=== PATIENT | female | born 1965 | race Caucasian/White ===

== ENCOUNTER 2018-01-25 06:19 | Emergency (ER) | payer SELFPAY ==
[2018-01-25 06:25] VITALS: BP 134/77
[2018-01-25] MEDS ORDERED: CIPROFLOXACIN HCL/DEXAMETH OTIC DROP 7.5 ML AS ONE (07:01)
[2018-01-25] MEDS ORDERED: IPRATROPIUM/ALBUTEROL 0.5-2.5 MG/3 ML AMPUL NEB ONE (07:02)
--- NOTE | 2018-01-25 07:06 | ER Document Report ---
ED General - General Chief Complaint: Ear Pain Stated Complaint: EAR PAIN Time Seen by Provider: 01/25/18 07:01 TRAVEL OUTSIDE OF THE [place] IN LAST 30 DAYS: No - HPI Patient complains to provider of: Ear pain, cough Notes: 52-year-old female presents with 1 day history of increasing pain in her left ear pain is 8/10 burning in nature without radiation denies fever or nasal congestion. Pain is exacerbated with pressure on her tragus or elevation left ear helix. Patient is also a pack-a-day smoker and has a cough requesting chest x-ray and breathing treatment. - Related Data Allergies/Adverse Reactions: No Known Allergies Allergy (Unverified 01/25/18 06:25) Past Medical History - Social History Smoking Status: Current Every Day Smoker Chew tobacco use (# tins/day): No Frequency of alcohol use: None Drug Abuse: None Family History: None Patient has suicidal ideation: No Patient has homicidal ideation: No Renal/ Medical History: Denies: Hx Peritoneal Dialysis Psychiatric Medical History: Reports: Hx Bipolar Disorder Past Surgical History: Reports: Hx Tubal Ligation Review of Systems - Review of Systems Notes: REVIEW OF SYSTEMS: CONSTITUTIONAL: -fevers, -chills EENT: -eye pain, -difficulty swallowing, -nasal congestion CARDIOVASCULAR: -chest pain, -syncope. RESPIRATORY: +cough, -SOB GASTROINTESTINAL: -abdominal pain, -nausea, -vomiting, -diarrhea GENITOURINARY: -dysuria, -hematuria MUSCULOSKELETAL: -back pain, -neck pain SKIN: -rash or skin lesions. HEMATOLOGIC: -easy bruising or bleeding. LYMPHATIC: -swollen, enlarged glands. NEUROLOGICAL: -altered mental status or loss of consciousness, -headache, - neurologic symptoms PSYCHIATRIC: -anxiety, -depression. ALL OTHER SYSTEMS REVIEWED AND NEGATIVE. Physical Exam - Vital signs Vitals: Temp Pulse Resp BP Pulse Ox 98.6 F 80 20 134/77 H 95 01/25/18 06:20 01/25/18 06:20 01/25/18 06:20 01/25/18 06:20 01/25/18 06:20 - Notes Notes: PHYSICAL EXAMINATION: GENERAL: Well-appearing, well-nourished and in no acute distress. HEAD: Atraumatic, normocephalic. EYES: Pupils equal round and reactive to light, extraocular movements intact, sclera anicteric, conjunctiva are normal. ENT: nares patent, oropharynx clear without exudates. Moist mucous membranes. EXTERNAL EAR CANCAL INFLAMMED NECK: Normal range of motion, supple without lymphadenopathy LUNGS: Breath sounds clear to auscultation bilaterally and equal. No wheezes rales or rhonchi. HEART: Regular rate and rhythm without murmurs ABDOMEN: Soft, nontender, normoactive bowel sounds. No guarding, no rebound. No masses appreciated. EXTREMITIES: Normal range of motion, no pitting or edema. No cyanosis. NEUROLOGICAL: Cranial nerves grossly intact. Normal speech, normal gait. Normal sensory and motor exams. PSYCH: Normal mood, normal affect. SKIN: Warm, Dry, normal turgor, no rashes or lesions noted. Course - Re-evaluation Re-evalutation: 01/25/18 07:27 Well-appearing female presents with otitis externa. Ciprodex drops instilled in the department prescription for more the same given. Patient also given a breathing treatment feeling much improved. Patient's chest x-ray is no acute process. Discharged home strict follow-up precautions given - Vital Signs Vital signs: Temp Pulse Resp BP Pulse Ox 98.6 F 80 20 134/77 H 95 01/25/18 06:20 01/25/18 06:20 01/25/18 06:20 01/25/18 06:20 01/25/18 06:20 Discharge - Discharge Clinical Impression: Cough Otitis externa Qualifiers: Otitis externa type: unspecified type Chronicity: acute Laterality: left Qualified Code(s): H60.502 - Unspecified acute noninfective otitis externa, left ear Condition: Stable Instructions: Use of Ear Drops ([facility]) Additional Instructions: See your PCP Prescriptions: Ciprofloxacin HCl/Dexameth [Ciprodex Otic Suspension 7.5 ml Bottle] 4 drop OT BID #1 bottle
--- NOTE | 2018-01-25 07:28 | RADIOLOGY REPORT (SQ) ---
EXAM DESCRIPTION: XR CHEST 1 VIEW COMPLETED DATE/TME: 01/25/2018 07:02 CLINICAL HISTORY: 52 years Female, cough COMPARISON: None. NUMBER OF VIEWS/TECHNIQUE: 1/AP FINDINGS: Adequate lung volume, clear parenchyma, normal cardiac silhouette, and intact bony thorax. IMPRESSION: No acute cardiopulmonary findings.
== END 2018-01-25 07:57 | disposition home or self-care (01) ==
LOC: ER 06:19
DX: H60.502 Unspecified acute noninfective otitis externa, left ear (principal); R05 Cough; H92.02 Otalgia, left ear; F17.210 Nicotine dependence, cigarettes, uncomplicated
CPT/HCPCS: 94640; 99283; 71045; J3490; J7620

== ENCOUNTER 2018-06-03 05:00 | Emergency (ER) | payer SELFPAY ==
--- NOTE | 2018-06-03 05:30 | ER Document Report ---
ED Medical Screen (RME) - General Chief Complaint: Shortness Of Breath Stated Complaint: DIFFFICULTY BREATHING Time Seen by Provider: 06/03/18 05:19 Notes: 53-year-old female with chief complaint of difficulty breathing. She states for the past 3 days she is having intermittent symptoms where she feels like she cannot take a full breath. She also states that she has frequent belching but states this is not new for her. She denies any particular pain. She denies nausea or vomiting except for 1 episode where she feels like she is vomiting mucus. She denies cough or congestion. Past medical history of bipolar/anxiety, states she is off medications. Current smoker. TRAVEL OUTSIDE OF THE [place] IN LAST 30 DAYS: No - Related Data Allergies/Adverse Reactions: No Known Allergies Allergy (Verified 06/03/18 05:05) Past Medical History Renal/ Medical History: Denies: Hx Peritoneal Dialysis Psychiatric Medical History: Reports: Hx Bipolar Disorder Past Surgical History: Reports: Hx Tubal Ligation Physical Exam - Vital signs Vitals: Temp Pulse Resp BP Pulse Ox 97.7 F 71 20 132/97 H 99 06/03/18 05:07 06/03/18 05:07 06/03/18 05:07 06/03/18 05:07 06/03/18 05:07 - General General appearance: Other - Patient blinking rapidly, occasionally hyperventilating, shifting in the bed. However she does not appear to be in distress. - Respiratory Respiratory status: No respiratory distress Breath sounds: Normal. No: Decreased air movement, Wheezing Course - Vital Signs Vital signs: Temp Pulse Resp BP Pulse Ox 97.7 F 71 20 132/97 H 99 06/03/18 05:07 06/03/18 05:07 06/03/18 05:07 06/03/18 05:07 06/03/18 05:07
[2018-06-03 05:38] LABS: ABSOLUTE BASOPHILS # (AUTO) 0.1 10^3/uL (0.0-0.2); ABSOLUTE EOSINOPHILS # (AUTO) 0.3 10^3/uL (0.0-0.6); ABSOLUTE LYMPHOCYTES (AUTO) 2.6 10^3/uL (0.5-4.7); ABSOLUTE MONOCYTES (AUTO) 0.5 10^3/uL (0.1-1.4); EOSINOPHILS % (AUTO) 3.5 % (0-6); HEMATOCRIT 41.2 % (36.0-47.0); HEMOGLOBIN 14.1 g/dL (12.0-15.5); LYMPHOCYTES % (AUTO) 31.2 % (13-45); MEAN CORPUSCULAR HGB CONC 34.2 g/dL (32.0-36.0); MEAN CORPUSCULAR VOLUME 85 fl (80-97); PLATELET COUNT 203 10^3/uL (150-450); RED BLOOD COUNT 4.87 10^6/uL (3.72-5.28); RED CELL DISTRIBUTION WIDTH 14.5 % (11.5-14.0); SEGMENTED NEUTROPHILS % (AUTO) 58.3 % (42-78); TOTAL CELLS COUNTED % (AUTO) 100 %; WHITE BLOOD COUNT 8.5 10^3/uL (4.0-10.5)
[2018-06-03 05:55] LABS: ALANINE AMINOTRANSFERASE 14 U/L (9-52); ALBUMIN 4.2 g/dL (3.5-5.0); ALKALINE PHOSPHATASE 96 U/L (38-126); ANION GAP 10 (5-19); ASPARTATE AMINO TRANSFERASE 15 U/L (14-36); BILIRUBIN,DIRECT 0.2 mg/dL (0.0-0.4); BILIRUBIN,TOTAL 0.3 mg/dL (0.2-1.3); BLOOD UREA NITROGEN 11 mg/dL (7-20); CARBON DIOXIDE 23 mmol/L (22-30); CHLORIDE 106 mmol/L (98-107); GLUCOSE 130 mg/dL (75-110); POTASSIUM 4.7 mmol/L (3.6-5.0); SODIUM 139.1 mmol/L (137-145); TOTAL PROTEIN 7.1 g/dL (6.3-8.2)
--- NOTE | 2018-06-03 06:35 | RADIOLOGY REPORT (SQ) ---
EXAM DESCRIPTION: XR CHEST 1 VIEW COMPLETED DATE/TME: 06/03/2018 05:24 CLINICAL HISTORY: 53 years Female, shortness of breath COMPARISON: None. NUMBER OF VIEWS/TECHNIQUE: 1/AP FINDINGS: Adequate lung volume, clear parenchyma, normal cardiac silhouette, and intact bony thorax. IMPRESSION: No acute cardiopulmonary findings.
[2018-06-03] MEDS ORDERED: DIPHENHYDRAMINE HCL 50 MG CAPSULE PO ONE (06:44)
[2018-06-03] MEDS ORDERED: LORAZEPAM 1 MG TABLET PO ONE (06:44)
--- NOTE | 2018-06-03 06:49 | ER Document Report ---
ED Respiratory Problem - General Chief Complaint: Shortness Of Breath Stated Complaint: DIFFFICULTY BREATHING Time Seen by Provider: 06/03/18 05:19 Mode of Arrival: Ambulatory Information source: Patient, [facility] Records Notes: This 53-year-old female patient comes emergency room complaining of belching for the past 6 months, for the past 3 days feels unable to breathe feels like there is something stuck in her throat. She does have anxiety, frequent cough, complains of the difficulty breathing, belching, and nonproductive cough. She reports she has been off her bipolar medications which include Prozac, Abilify, and one other she cannot recall since sometime in July 2017. That is about the same time that her symptoms began. She reports the belching occurs even in her sleep and makes it difficult to stay asleep. She did not seem to understand that she is swallowing the air that she is belching, I watched her do this repeatedly. TRAVEL OUTSIDE OF THE [place] IN LAST 30 DAYS: No - Related Data Allergies/Adverse Reactions: No Known Allergies Allergy (Verified 06/03/18 05:05) Past Medical History - General Information source: Patient, [facility] Records - Social History Smoking Status: Current Every Day Smoker Cigarette use (# per day): Yes - 20+ Chew tobacco use (# tins/day): No Smoking Education Provided: Yes - 3 minutes of discussions about how the smoking contributes to her health pr Frequency of alcohol use: Rare Drug Abuse: None Occupation: Unemployed Lives with: Friend Family History: None Patient has suicidal ideation: No Patient has homicidal ideation: No - Medical History Medical History: Negative Psychiatric Medical History: Reports: Hx Anxiety, Hx Bipolar Disorder Past Surgical History: Reports: Hx Tubal Ligation Review of Systems - Review of Systems Constitutional: No symptoms reported. denies: Weight loss EENT: No symptoms reported Cardiovascular: No symptoms reported Respiratory: Short of breath - Subjective shortness of breath caused by her frequent belching Gastrointestinal: See HPI Genitourinary: No symptoms reported Female Genitourinary: Post menopausal Musculoskeletal: Back pain, Joint pain, Other - Patient ambulates somewhat bent over using a cane Skin: No symptoms reported Hematologic/Lymphatic: No symptoms reported Neurological/Psychological: Depression, Anxiety Physical Exam - Vital signs Vitals: Temp Pulse Resp BP Pulse Ox 97.7 F 71 20 132/97 H 99 06/03/18 05:07 06/03/18 05:07 06/03/18 05:07 06/03/18 05:07 06/03/18 05:07 Interpretation: Normal - General General appearance: Alert, Anxious In distress: Mild - Frequent belching - HEENT Head: Normocephalic, Atraumatic Eyes: Normal Pupils: PERRL Nasal: Normal Mouth/Lips: Normal Pharynx: Normal Neck: Normal - Respiratory Respiratory status: No respiratory distress Breath sounds: Normal - Cardiovascular Rhythm: Regular Heart sounds: Normal auscultation Murmur: No - Abdominal Inspection: Morbidly Obese - Back Back: Normal - Extremities General upper extremity: Normal inspection General lower extremity: Normal inspection - Neurological Neuro grossly intact: Yes - Psychological Associated symptoms: Anxious, Depressed - Skin Skin Temperature: Warm Skin Moisture: Dry Skin Color: Normal Course - Re-evaluation Re-evalutation: 06/03/18 06:50 The patient will be given a dose of Benadryl and Ativan to see if that slows the incessant belching she is doing. 06/03/18 07:24 The nurse informed me that the patient stated she drove here so she is not able to take the medications and drive home. She will be given that medication to take home with her and then try to see if that suppresses her belching. She will be encouraged to follow-up with a primary care provider and get back on her bipolar medications as soon as possible. - Vital Signs Vital signs: Temp Pulse Resp BP Pulse Ox 97.7 F 71 19 107/88 H 97 06/03/18 05:07 06/03/18 05:07 06/03/18 07:01 06/03/18 07:01 06/03/18 07:01 - Laboratory Result Diagrams: 06/03/18 05:26 06/03/18 05:26 Laboratory results interpreted by me: 06/03/18 06/03/18 05:26 05:26 RDW 14.5 H Glucose 130 H - Diagnostic Test Radiology reviewed: Image reviewed, Reports reviewed - Chest x-ray is unremarkable - EKG Interpretation by Me EKG shows normal: Sinus rhythm, [place], Intervals, QRS Complexes, ST-T Waves Rate: Normal - 59 Rhythm: NSR Discharge - Discharge Clinical Impression: Functional belching disorder, Noncompliance with medications Bipolar disorder Qualifiers: Active/Remission status: remission status unspecified Qualified Code(s): F31.9 - Bipolar disorder, unspecified Condition: Stable Disposition: HOME, SELF-CARE Additional Instructions: Your repeated belching is a result of you swallowing air and then burping it back up. This is known as a "functional belching disorder". The symptoms seem to have started after you stopped taking your medications for bipolar disorder. You will be sent home with the medications are planned to give you here, since you are driving and should not take the medication until you are at home and do not have to go anywhere for a few hours. The medications will probably help you rest and sleep, and suppress the belching for a while. You will need to follow-up with your mental health providers and get started back on your regular bipolar medications to help stop the air swallowing and belching cycle. RETURN TO THE EMERGENCY ROOM IF ANY NEW OR WORSENING SYMPTOMS.
--- NOTE | 2018-06-03 07:34 | EKG REPORT ---
SEVERITY:- NORMAL ECG - SINUS RHYTHM : Confirmed by: Amaury Mcdonald MD 03-Jun-2018 07:34:01
[2018-06-03 07:51] VITALS: BP 122/81
== END 2018-06-03 07:51 | disposition home or self-care (01) ==
LOC: ER 05:00
DX: R14.2 Eructation (principal); F31.9 Bipolar disorder, unspecified; R06.00 Dyspnea, unspecified; R06.02 Shortness of breath; Z91.14 Patient's other noncompliance with medication regimen; F41.9 Anxiety disorder, unspecified; R05 Cough; F17.210 Nicotine dependence, cigarettes, uncomplicated; Z98.51 Tubal ligation status
CPT/HCPCS: 36415; 71045; 80053; 84484; 85025; 93005; 93010; 99285

== ENCOUNTER → 2018-08-20 | Outpatient (CLI) | payer OTHER ==
[2018-08-20 10:48] LABS: ABSOLUTE EOSINOPHILS # (AUTO) 0.3 10^3/uL (0.0-0.6); ABSOLUTE LYMPHOCYTES (AUTO) 2.2 10^3/uL (0.5-4.7); ABSOLUTE MONOCYTES (AUTO) 0.4 10^3/uL (0.1-1.4); BASOPHILS % (AUTO) 0.4 % (0-2); EOSINOPHILS % (AUTO) 3.3 % (0-6); HEMATOCRIT 40.6 % (36.0-47.0); HEMOGLOBIN 13.6 g/dL (12.0-15.5); LYMPHOCYTES % (AUTO) 24.1 % (13-45); MEAN CORPUSCULAR HEMOGLOBIN 28.7 pg (27.0-33.4); MEAN CORPUSCULAR HGB CONC 33.6 g/dL (32.0-36.0); MEAN CORPUSCULAR VOLUME 86 fl (80-97); MONOCYTES % (AUTO) 4.6 % (3-13); PLATELET COUNT 185 10^3/uL (150-450); RED BLOOD COUNT 4.75 10^6/uL (3.72-5.28); RED CELL DISTRIBUTION WIDTH 14.7 % (11.5-14.0); SEGMENTED NEUTROPHILS % (AUTO) 67.6 % (42-78); TOTAL CELLS COUNTED % (AUTO) 100 %; WHITE BLOOD COUNT 8.9 10^3/uL (4.0-10.5)
--- NOTE | 2018-08-20 10:52 | RADIOLOGY REPORT (SQ) ---
EXAM DESCRIPTION: KNEE BILATERAL 1-2 VIEWS COMPLETED DATE/TIME: 08/20/2018 10:29 am REASON FOR STUDY: MONOARTHRITIS, NOT ELSEWHERE CLASSIFIED, UNSPECIFIED SITE E66.9 OBESITY, UNSPECIF IED M13.10 MONOARTHRITIS, NOT ELSEWHERE CLASSIFIED, UNSPECIFIED J44.9 CHRONIC OBSTRUCTIVE PULMONAR Y DISEASE, UNSPECIFIED COMPARISON: None. NUMBER OF VIEWS: Two views. TECHNIQUE: AP and lateral standing bilateral knees. LIMITATIONS: None. FINDINGS: MINERALIZATION: Normal. RIGHT KNEE BONES: No acute fracture. No worrisome bone lesions. MEDIAL COMPARTMENT: No significant osteophytes. Mild joint space narrowing. No chondrocalcinosis. LATERAL COMPARTMENT: No significant osteophytes. No joint space narrowing. No chondrocalcinosis. PATELLOFEMORAL COMPARTMENT: No significant osteophytes. Significant joint space narrowing. No ch ondrocalcinosis. LEFT KNEE BONES: No acute fracture. No worrisome bone lesions. MEDIAL COMPARTMENT: No significant osteophytes. Near complete loss of the joint space. No chondro calcinosis. LATERAL COMPARTMENT: There are prominent lateral osteophytes. Marked joint space narrowing. No ch ondrocalcinosis. PATELLOFEMORAL COMPARTMENT: Prominent osteophytes at the patellofemoral junction. Marked joint spa ce narrowing. No chondrocalcinosis. IMPRESSION: Advanced osteoarthritic changes in the left knee involving all compartments. Mild osteo arthritic changes in the medial compartment and patellofemoral compartment of the right knee. TECHNICAL DOCUMENTATION: JOB ID: [id number] [employer]- All Rights Reserved Reading location - IP/workstation name: [email or web address]
--- NOTE | 2018-08-20 10:54 | RADIOLOGY REPORT (SQ) ---
EXAM DESCRIPTION: CHEST PA/LATERAL COMPLETED DATE/TIME: 08/20/2018 10:29 am REASON FOR STUDY: CHRONIC OBSTRUCTIVE PULMONARY DISEASE, UNSPECIFIED COMPARISON: 06/03/2018 EXAM PARAMETERS: NUMBER OF VIEWS: two views TECHNIQUE: Digital Frontal and Lateral radiographic views of the chest acquired. RADIATION DOSE: NA LIMITATIONS: none FINDINGS: LUNGS AND PLEURA: No opacities, masses or pneumothorax. No pleural effusion. MEDIASTINUM AND HILAR STRUCTURES: No masses or contour abnormalities. HEART AND VASCULAR STRUCTURES: Heart normal size. No evidence for failure. BONES: No acute findings. HARDWARE: None in the chest. OTHER: No other significant finding. IMPRESSION: NO SIGNIFICANT RADIOGRAPHIC FINDING IN THE CHEST. TECHNICAL DOCUMENTATION: JOB ID: [id number] [employer]- All Rights Reserved Reading location - IP/workstation name: [email or web address]
[2018-08-20 11:08] LABS: ALANINE AMINOTRANSFERASE 24 U/L (9-52); ALBUMIN 4.3 g/dL (3.5-5.0); ALKALINE PHOSPHATASE 91 U/L (38-126); ANION GAP 11 (5-19); ASPARTATE AMINO TRANSFERASE 16 U/L (14-36); BILIRUBIN,DIRECT 0.3 mg/dL (0.0-0.4); BILIRUBIN,TOTAL 0.4 mg/dL (0.2-1.3); BLOOD UREA NITROGEN 15 mg/dL (7-20); CALCIUM 10.3 mg/dL (8.4-10.2); CARBON DIOXIDE 26 mmol/L (22-30); CHLORIDE 103 mmol/L (98-107); CHOLESTEROL 180.29 mg/dL (0-200); GLUCOSE 117 mg/dL (75-110); POTASSIUM 4.9 mmol/L (3.6-5.0); SODIUM 139.9 mmol/L (137-145); TOTAL PROTEIN 7.4 g/dL (6.3-8.2); TRIGLYCERIDES 220 mg/dL (<150); URIC ACID 6.7 mg/dL (2.5-7.5)
[2018-08-20 11:19] LABS: DIRECT LDL 100 mg/dL (<100)
== END ==
LOC: CCC 09:54
DX: M13.10 Monoarthritis, not elsewhere classified, unspecified site (principal); M25.562 Pain in left knee; M25.561 Pain in right knee; J44.9 Chronic obstructive pulmonary disease, unspecified; E66.9 Obesity, unspecified; R05 Cough
CPT/HCPCS: 36415; 71046; 80053; 80061; 83036; 84443; 84550; 85025

== ENCOUNTER 2018-08-21 19:15 | Emergency (ER) | payer SELFPAY ==
[2018-08-21] MEDS ORDERED: KETOROLAC TROMETHAMINE 60 MG/2 ML SDV IM ONE (20:22)
--- NOTE | 2018-08-21 20:24 | ER Document Report ---
HPI - HPI Time Seen by Provider: 08/21/18 20:03 Pain Level: 5 Notes: Patient is a 53-year-old female who presents with bilateral knee pain. Patient reports pain has been ongoing for several years, worsening over the last 3 days. Patient reports that she has already had imaging as well as MRIs done of both knees, states it is "[id number]". Patient reports she is currently being worked up for a possible bilateral knee replacement. Patient states that the pain is getting too severe for her to tolerate. - REPRODUCTIVE Reproductive: DENIES: : - MUSCULOSKELETAL Musculoskeletal: REPORTS: Extremity pain - Both knees Past Medical History - General Information source: Patient - Social History Smoking Status: Current Every Day Smoker Chew tobacco use (# tins/day): No Frequency of alcohol use: Social Drug Abuse: None Family History: None Patient has suicidal ideation: No Patient has homicidal ideation: No Endocrine Medical History: Reports: Hx Diabetes Mellitus Type 2 Renal/ Medical History: Denies: Hx Peritoneal Dialysis Psychiatric Medical History: Reports: Hx Anxiety, Hx Bipolar Disorder Past Surgical History: Reports: Hx Tubal Ligation Vertical Provider Document - CONSTITUTIONAL Notes: PHYSICAL EXAMINATION: GENERAL: Well-appearing, well-nourished and in no acute distress. HEAD: Atraumatic, normocephalic. EYES: Pupils equal round extraocular movements intact, conjunctiva are normal. ENT: Nares patent NECK: Normal range of motion LUNGS: No respiratory distress Musculoskeletal: Limited range of motion to bilateral knees, no erythema or ecchymosis noted. NEUROLOGICAL: Normal speech, normal gait. PSYCH: Normal mood, normal affect. SKIN: Warm, Dry, normal turgor, no rashes or lesions noted. - INFECTION CONTROL TRAVEL OUTSIDE OF THE [place] IN LAST 30 DAYS: No Course - Re-evaluation Re-evalutation: Toradol injection was given here in the emergency department. Discussed with patient that we do not treat chronic pain in the emergency department. I gave her multiple options to include following up with her primary care provider, her surgeon or pain management. - Vital Signs Vital signs: Temp Pulse Resp BP Pulse Ox 97.6 F 68 16 114/70 95 08/21/18 19:38 08/21/18 19:38 08/21/18 19:38 08/21/18 19:38 08/21/18 19:38 Discharge - Discharge Clinical Impression: Chronic knee pain Qualifiers: Laterality: bilateral Qualified Code(s): M25.561 - Pain in right knee Condition: Stable Disposition: HOME, SELF-CARE Additional Instructions: Please take medication as prescribed. Please keep your follow-up appointments that you have [facility] as well as the specialist you are going to see. Prescriptions: Naproxen [Naprosyn 375 Mg Tablet] 375 mg PO BID #40 tablet Referrals: [facility] [Primary Care Provider] - Follow up as needed
[2018-08-21 20:47] VITALS: BP 99/66
== END 2018-08-21 20:47 | disposition home or self-care (01) ==
LOC: ER 19:15
DX: G89.29 Other chronic pain (principal); M25.561 Pain in right knee; M25.562 Pain in left knee; F17.200 Nicotine dependence, unspecified, uncomplicated; E11.9 Type 2 diabetes mellitus without complications
CPT/HCPCS: 99283; 96372; J1885

== ENCOUNTER → 2018-12-11 | Outpatient (CLI) | payer MEDICAID ==
[2018-12-11 12:01] LABS: APPEARANCE,URINE CLEAR; BILIRUBIN,URINE NEGATIVE (NEGATIVE); COLOR,URINE YELLOW; GLUCOSE, URINE NEGATIVE (NEGATIVE); KETONES,URINE NEGATIVE (NEGATIVE); LEUKOCYTE ESTERASE,URINE TRACE (NEGATIVE); NITRITE,URINE NEGATIVE (NEGATIVE); PROTEIN,URINE NEGATIVE (NEGATIVE); URINE SPECIFIC GRAVITY 1.011; UROBILINOGEN,URINE NEGATIVE mg/dL (<2.0)
[2018-12-11 12:07] LABS: ABSOLUTE EOSINOPHILS # (AUTO) 0.3 10^3/uL (0.0-0.6); ABSOLUTE LYMPHOCYTES (AUTO) 1.7 10^3/uL (0.5-4.7); ABSOLUTE MONOCYTES (AUTO) 0.4 10^3/uL (0.1-1.4); ABSOLUTE NEUT (AUTO) 5.1 10^3/uL (1.7-8.2); BASOPHILS % (AUTO) 0.4 % (0-2); EOSINOPHILS % (AUTO) 3.7 % (0-6); HEMATOCRIT 42.6 % (36.0-47.0); HEMOGLOBIN 14.2 g/dL (12.0-15.5); LYMPHOCYTES % (AUTO) 22.4 % (13-45); MEAN CORPUSCULAR HEMOGLOBIN 28.4 pg (27.0-33.4); MEAN CORPUSCULAR HGB CONC 33.3 g/dL (32.0-36.0); MEAN CORPUSCULAR VOLUME 86 fl (80-97); MONOCYTES % (AUTO) 5.6 % (3-13); PLATELET COUNT 198 10^3/uL (150-450); RED BLOOD COUNT 4.98 10^6/uL (3.72-5.28); RED CELL DISTRIBUTION WIDTH 14.6 % (11.5-14.0); SEGMENTED NEUTROPHILS % (AUTO) 67.9 % (42-78); TOTAL CELLS COUNTED % (AUTO) 100 %; WHITE BLOOD COUNT 7.6 10^3/uL (4.0-10.5)
[2018-12-11 12:07] LABS: ADD MANUAL MICROSCOPIC YES
[2018-12-11 12:24] LABS: ANION GAP 8 (5-19); BLOOD UREA NITROGEN 11 mg/dL (7-20); CALCIUM 9.5 mg/dL (8.4-10.2); CARBON DIOXIDE 27 mmol/L (22-30); CHLORIDE 104 mmol/L (98-107); GLUCOSE 184 mg/dL (75-110); POTASSIUM 4.7 mmol/L (3.6-5.0); SODIUM 138.8 mmol/L (137-145)
--- NOTE | 2018-12-11 13:33 | EKG REPORT ---
SEVERITY:- BORDERLINE ECG - SINUS RHYTHM PROBABLE LEFT ATRIAL ABNORMALITY : Confirmed by: Amaury Mcdonald MD 11-Dec-2018 13:32:11
--- NOTE | 2018-12-11 13:51 | RADIOLOGY REPORT (SQ) ---
EXAM DESCRIPTION: CHEST PA/LATERAL COMPLETED DATE/TIME: 12/11/2018 12:01 pm REASON FOR STUDY: PRE-OP COMPARISON: None. NUMBER OF VIEWS: Two view. TECHNIQUE: Frontal and lateral radiographic views of the chest acquired. LIMITATIONS: None. FINDINGS: LUNGS AND PLEURA: No opacities, masses or pneumothorax. No pleural effusion. MEDIASTINUM AND HILAR STRUCTURES: No masses or contour abnormalities. HEART AND VASCULATURE: Heart normal size. No evidence for failure. BONY STRUCTURES: No acute findings. HARDWARE: None. OTHER: No other significant finding. IMPRESSION: NO SIGNIFICANT RADIOGRAPHIC FINDING IN THE CHEST. TECHNICAL DOCUMENTATION: JOB ID: [id number] [employer]- All Rights Reserved Reading location - IP/workstation name: [email or web address]
== END ==
LOC: OD 11:18
PROVIDERS: ATTEND Orthopaedic Surgery
DX: Z01.810 Encounter for preprocedural cardiovascular examination (principal); Z01.811 Encounter for preprocedural respiratory examination; Z01.812 Encounter for preprocedural laboratory examination; M17.11 Unilateral primary osteoarthritis, right knee
CPT/HCPCS: 36415; 71046; 80048; 81001; 85025; 93005; 93010

== ENCOUNTER 2019-01-06 08:33 | Day surgery (SDC) | payer MEDICAID ==
[~2019-01-06 08:33] MED LIST: PROPOFOL INJ 200 MG/20 ML VIAL IV ONE
[2019-01-06] MEDS ORDERED: FAMOTIDINE INJ/PF 20 MG/2 ML SDV IV ONE (10:58)
[2019-01-06] MEDS ORDERED: METOCLOPRAMIDE HCL INJ/PF 10 MG/2 ML SDV ONE (10:58)
[2019-01-06] MEDS ORDERED: ALBUTEROL SULFATE 0.083% NEB 2.5 MG/3 ML AMPUL NEB ONE (10:59)
[2019-01-06 11:12] VITALS: BP 121/65
--- NOTE | 2019-01-06 14:25 | Operative Report ---
Operative Report DATE OF SURGERY: 01/06/19 Operative Report: The risks, benefits and alternatives of the procedure including the risk of bleeding, perforation requiring surgery have been explained to the patient in detail and informed consent has been obtained. Patient is taken back to the endoscopy suite and placed in a left, lateral decubital position. Timeout was called. Propofol medication is administered. Rectal examination is done which did not reveal any masses, tears or fissures. An Olympus videoscope was introduced into the patient's rectum. The scope was then carefully advanced all the way to the cecum. The cecum was identified by the usual anatomical landmarks including the ileocecal valve as well as the appendiceal office. Photodocumentation is obtained. The scope was then sequentially pulled back via the various segments of the colon including the ascending colon, hepatic flexure, transverse colon, splenic flexure, descending colon finding to the rectosigmoid portions of the colon. Retroflexion maneuvers performed. PREOPERATIVE DIAGNOSIS: Colorectal cancer screening POSTOPERATIVE DIAGNOSIS: Mild inflammation noted on the right-hand side of the colon status post biopsy. Internal hemorrhoids OPERATION: Colonoscopy with biopsy SURGEON: MARIBEL LEOS ANESTHESIA: LMAC TISSUE REMOVED OR ALTERED: As noted above. COMPLICATIONS: None. ESTIMATED BLOOD LOSS: None. INTRAOPERATIVE FINDINGS: As noted above. PROCEDURE: Patient tolerated the procedure well. No immediate postprocedure complications are noted. Patient is discharged in good condition. Discharge date 01/06/2019. Discharge diet: Regular. Discharge activity: Regular. 2 to 3-week follow-up to discuss findings. Patient is instructed to call the office or proceed to the emergency room should there be any further problems or questions. If biopsies are negative can consider a 10-year surveillance colonoscopy.
== END 2019-01-06 11:17 | disposition home or self-care (01) ==
LOC: END 08:33
PROVIDERS: ATTEND Internal Medicine Gastroenterology
DX: Z12.11 Encounter for screening for malignant neoplasm of colon (principal); K52.9 Noninfective gastroenteritis and colitis, unspecified; K64.8 Other hemorrhoids; E11.9 Type 2 diabetes mellitus without complications; F17.210 Nicotine dependence, cigarettes, uncomplicated; E66.01 Morbid (severe) obesity due to excess calories; Z68.43 Body mass index [BMI] 50.0-59.9, adult
CPT/HCPCS: 45380; 82962; 88305 ×2; 94799; 94640; 00812; J2765; J2704; S0028; 812

== ENCOUNTER → 2019-01-13 | Outpatient (CLI) | payer MEDICAID ==
[2019-01-13 16:55] LABS: ANION GAP 11 (5-19); BLOOD UREA NITROGEN 11 mg/dL (7-20); CARBON DIOXIDE 27 mmol/L (22-30); CHLORIDE 102 mmol/L (98-107); CHOLESTEROL 160.27 mg/dL (0-200); GLUCOSE 96 mg/dL (75-110); POTASSIUM 4.6 mmol/L (3.6-5.0); TRIGLYCERIDES 186 mg/dL (<150)
[2019-01-13 17:06] LABS: DIRECT LDL 104 mg/dL (<100)
[2019-01-13 17:19] LABS: VLDL CHOLESTEROL 37.2 mg/dL (10-31)
== END ==
LOC: OD 15:19
PROVIDERS: ATTEND Internal Medicine Cardiovascular Disease
DX: E66.01 Morbid (severe) obesity due to excess calories (principal); R22.9 Localized swelling, mass and lump, unspecified; R06.02 Shortness of breath
CPT/HCPCS: 36415; 80048; 80061; 83036; 83880

== ENCOUNTER → 2019-02-03 | Outpatient (CLI) | payer MEDICAID ==
[~2019-02-03] MED LIST changes: +ALBUTEROL SULFATE 0.083% NEB 2.5 MG/3 ML AMPUL NEB ONE; -PROPOFOL INJ 200 MG/20 ML VIAL IV ONE
--- NOTE | 2019-02-03 13:50 | Pulmonary Function Test ---
Pulmonary Function Test Date of Procedure:: 02/03/19 INDICATION:: Dyspnea Referring Provider: Glenna HEBERT Journeyman Tool And [employer] Maker: Claudia Dorsey CALL CIRCUIT WORKER - Report Spirometry: Spirometry: pre-FVC: 2.77 L 86% post-FVC: 2.70 L 83% pre-FEV:1 1.69 L 74% post-FEV1: 1.99 L 75% pre-FEV1/FVC %: 71 post-FEV1/FVC%: 74 predicted: 80 [id number]%: 1.31 L 45% [id number]%: 1.51 L 52% Diffusion Capactity: DLCO: 17.9 57% DLCO/VA: 4.52 111% Impression: Obstructive ventilatory defect inferred by the decrease in flow at the FEF 25- 75%. No significant response with bronchodilator therapy appears. This in and of itself does not preclude a clinical trial of bronchodilator therapy. Moderate decrease in diffusion capacity
== END ==
LOC: RT 07:03
PROVIDERS: ATTEND Physician Assistant
DX: R06.02 Shortness of breath (principal)
CPT/HCPCS: 94060; 94729

== ENCOUNTER → 2019-02-13 | Outpatient (CLI) | payer MEDICAID ==
[2019-02-13 14:00] LABS: HEMATOCRIT 45.1 % (36.0-47.0); MEAN CORPUSCULAR HEMOGLOBIN 28.5 pg (27.0-33.4); MEAN CORPUSCULAR HGB CONC 33.2 g/dL (32.0-36.0); MEAN CORPUSCULAR VOLUME 86 fl (80-97); PLATELET COUNT 241 10^3/uL (150-450); RED BLOOD COUNT 5.25 10^6/uL (3.72-5.28); RED CELL DISTRIBUTION WIDTH 14.9 % (11.5-14.0); WHITE BLOOD COUNT 9.6 10^3/uL (4.0-10.5)
[2019-02-13 14:10] LABS: INTERNATIONAL RATION (INR) 1.01; PROTHROMBIN TIME 13.3 SEC (11.4-15.4)
[2019-02-13 14:24] LABS: ANION GAP 12 (5-19); BLOOD UREA NITROGEN 11 mg/dL (7-20); CALCIUM 9.9 mg/dL (8.4-10.2); CARBON DIOXIDE 23 mmol/L (22-30); CHLORIDE 104 mmol/L (98-107); GLUCOSE 101 mg/dL (75-110); POTASSIUM 4.9 mmol/L (3.6-5.0)
== END ==
LOC: OD 12:28
PROVIDERS: ATTEND Physician Assistant
DX: Z01.810 Encounter for preprocedural cardiovascular examination (principal); R07.9 Chest pain, unspecified; R07.89 Other chest pain; Z79.01 Long term (current) use of anticoagulants
CPT/HCPCS: 36415; 80048; 85027; 85610; 85730

== ENCOUNTER → 2019-06-26 | Outpatient (CLI) | payer MEDICAID ==
--- NOTE | 2019-06-27 15:36 | XCELERA REPORT ---
[address] [address] Lower Extremity Arterial Evaluation Name: ORLANDO WHIPPLE Age: 54 yrs Gender: Female : 1965 Patient Status: Outpatient Patient Location: [place] Study Date: 06/26/2019 07:46 AM Procedure: A color flow and duplex scan of the lower extremity arteries was performed bilaterally with velocity and waveform anaylsis. Ankle brachial indicies performed. Reason For Study: CHRONIC ULCER LEFT CALF Ordering Physician: JENN EDDY Performed By: Apoorva Mcmahon Measurements and Calculations Right Left SHAKE BACKBOARD NOTCHER PSV 209.2 160.1 cm/sec Prox PFA PSV -128.1 -76.6 cm/sec Prox SFA PSV -131.2 -152.4cm/sec Mid SFA PSV -115.0 -118.8cm/sec Dist SFA PSV -101.8 -123.6cm/sec Prox Pop A PSV 75.6 80.5 cm/sec Prox JASON PSV -75.5 67.2 cm/sec Prox JEWELRY CASTING MODEL MAKER PSV 93.3 46.1 cm/sec Dist JEWELRY CASTING MODEL MAKER PSV 93.8 55.2 cm/sec Mid Imelda A PSV 89.4 -54.2 cm/sec Negrito Pedis PSV -91.3 -93.8 cm/sec Right Side Arterial Evaluation Normal velocity and triphasic waveforms noted from the Common Femoral artery to the infrageniculate vessels . Ankle Brachial index 0.97. Left Side Arterial Evaluation Normal velocity and triphasic waveforms noted from the Common Femoral artery to the infrageniculate vessels . Ankle Brachial index 1.03. Interpretation Summary No hemodynamically significant lesions in the bilateral lower extremities, on duplex imaging, at rest. QUIN's are normal suggesting no significant arterial obstructive disease. : JENN EDDY > Rylan Naranjo
== END ==
LOC: WI 07:25
PROVIDERS: ATTEND Nurse Practitioner Family
DX: L97.222 Non-pressure chronic ulcer of left calf with fat layer exposed (principal)
CPT/HCPCS: 93922; 93925

== ENCOUNTER → 2019-07-04 | Outpatient (CLI) | payer MEDICAID ==
[2019-07-04 11:59] LABS: ALBUMIN 4.4 g/dL (3.5-5.0); ALKALINE PHOSPHATASE 91 U/L (38-126); ASPARTATE AMINO TRANSFERASE 17 U/L (14-36); BILIRUBIN,DIRECT 0.1 mg/dL (0.0-0.4); BILIRUBIN,TOTAL 0.5 mg/dL (0.2-1.3); CHOLESTEROL 169.38 mg/dL (0-200); TOTAL PROTEIN 7.4 g/dL (6.3-8.2); TRIGLYCERIDES 191 mg/dL (<150)
[2019-07-04 12:10] LABS: DIRECT LDL 108 mg/dL (<100)
[2019-07-04 12:12] LABS: VLDL CHOLESTEROL 38.2 mg/dL (10-31)
== END ==
LOC: OD 10:33
PROVIDERS: ATTEND Physician Assistant
DX: E78.2 Mixed hyperlipidemia (principal); Z79.899 Other long term (current) drug therapy
CPT/HCPCS: 36415; 80061; 80076

== ENCOUNTER 2019-08-02 10:46 | Inpatient (IN) | payer MEDICAID ==
--- NOTE | 2019-08-02 10:55 | ER Document Report ---
ED Medical Screen (RME) - General Chief Complaint: Numbness of Face Stated Complaint: FACIAL NUMBNESS Time Seen by Provider: 08/02/19 10:52 Primary Care Provider: HOLLY MENDES PA-C [Primary Care Provider] - Follow up as needed Notes: HPI: 54-year-old female with history of diabetes and bipolar presenting to the emergency department complaining of sudden onset of left facial numbness with some blurring of vision and lightheadedness that began around 9 AM this morning. Denies weakness in the arms or legs. Denies chest pain shortness of breath. No history of anything similar. Denies slurred speech. I have greeted and performed a rapid initial assessment of this patient. A comprehensive ED assessment and evaluation of the patient, analysis of test results and completion of the medical decision making process will be conducted by additional ED providers PHYSICAL EXAMINATION: GENERAL: Well-appearing, well-nourished and in moderate acute distress. HEAD: Atraumatic, normocephalic. EYES: sclera anicteric, conjunctiva are normal. ENT: Moist mucous membranes. NECK: Normal range of motion LUNGS: Normal work of breathing, clear to auscultation HEART: 2+ radial pulses bilaterally, regular rate and rhythm ABD: limited by positioning for exam in triage. EXTREMITIES: no pitting or edema. No cyanosis. NEUROLOGICAL: No focal neurological deficits. Moves all extremities spontaneously and on command. Strength equal 5/5 bilateral upper and lower extremities. Sensation intact and equal bilateral upper and lower extremities. Patient has subjective decreased sensation in the left forehead, cheek and mandible relative to the right side. There is no facial droop. Patient has no slurred speech. She is able to raise both eyebrows PSYCH: Normal mood, normal affect. SKIN: Warm, Dry, normal turgor, no rashes or lesions noted. TRAVEL OUTSIDE OF THE [place] IN LAST 30 DAYS: No - Related Data Allergies/Adverse Reactions: No Known Allergies Allergy (Verified 08/02/19 10:52) Past Medical History - Past Medical History Cardiac Medical History: Denies: Hx Coronary Artery Disease, Hx Heart Attack, Hx Hypertension Pulmonary Medical History: Denies: Hx Asthma, Hx Bronchitis, Hx COPD, Hx Pneumonia Neurological Medical History: Denies: Hx Cerebrovascular Accident, Hx Seizures Endocrine Medical History: Reports: Hx Diabetes Mellitus Type 2 Renal/ Medical History: Denies: Hx Peritoneal Dialysis Musculoskeltal Medical History: Denies Hx Arthritis Psychiatric Medical History: Reports: Hx Anxiety, Hx Bipolar Disorder Past Surgical History: Reports: Hx Tubal Ligation - Immunizations Hx Diphtheria, Pertussis, Tetanus Vaccination: Yes Physical Exam - Vital signs Vitals: Temp Pulse Resp BP Pulse Ox 97.7 F 66 16 129/91 H 98 08/02/19 10:52 08/02/19 10:52 08/02/19 10:52 08/02/19 10:52 08/02/19 10:52 Course - Vital Signs Vital signs: Temp Pulse Resp BP Pulse Ox 97.7 F 66 16 129/91 H 98 08/02/19 10:52 08/02/19 10:52 08/02/19 10:52 08/02/19 10:52 08/02/19 10:52 Doctor's Discharge - Discharge Referrals: HOLLY MENDES PA-C [Primary Care Provider] - Follow up as needed
[2019-08-02 11:43] LABS: INTERNATIONAL RATION (INR) 0.95; PROTHROMBIN TIME 12.7 SEC (11.4-15.4)
[2019-08-02 11:44] LABS: PARTIAL THROMBOPLASTIN TIME 31.5 SEC (23.5-35.8)
[2019-08-02 11:48] LABS: ABSOLUTE MONOCYTES (AUTO) 0.4 10^3/uL (0.1-1.4); MEAN CORPUSCULAR HGB CONC 33.5 g/dL (32.0-36.0); TOTAL CELLS COUNTED % (AUTO) 100 %
--- NOTE | 2019-08-02 11:50 | RADIOLOGY REPORT (SQ) ---
EXAM DESCRIPTION: CT HEAD WITHOUT COMPLETED DATE/TIME: 08/02/2019 11:08 am REASON FOR STUDY: facial numbness left COMPARISON: None. TECHNIQUE: Axial images acquired through the brain without intravenous contrast. Images reviewed wi th bone, brain and subdural windows. Additional sagittal and coronal reconstructions were generated. Images stored on PACS. All CT scanners at this facility use dose modulation, iterative reconstruction, and/or weight based d osing when appropriate to reduce radiation dose to as low as reasonably achievable (ALARA). [facility]: Dose Right [facility]: CareDose [facility]: Dose Right [facility]: Teradose 4D [facility]: Smart Brandicted RADIATION DOSE: CT Rad equipment meets quality standard of care and radiation dose reduction techniq ues were employed. CTDIvol: 53.2 mGy. DLP: 991 mGy-cm. mGy. LIMITATIONS: None. FINDINGS: VENTRICLES: Normal size and contour. CEREBRUM: No masses. No hemorrhage. No midline shift. No evidence for acute infarction. Normal gra y/white matter differentiation. No areas of low density in the white matter. CEREBELLUM: No masses. No hemorrhage. No alteration of density. No evidence for acute infarction. EXTRAAXIAL SPACES: No fluid collections. No masses. ORBITS AND GLOBE: No intra- or extraconal masses. Normal contour of globe without masses. CALVARIUM: No fracture. PARANASAL SINUSES: No fluid or mucosal thickening. SOFT TISSUES: No mass or hematoma. OTHER: No other significant finding. IMPRESSION: NORMAL BRAIN CT WITHOUT CONTRAST. EVIDENCE OF ACUTE STROKE: NO. COMMENT: Quality ID # [id number]: Final reports with documentation of one or more dose reduction techniques (e.g., Automated exposure control, adjustment of the mA and/or kV according to patient size, use of iterative reconstruction technique) TECHNICAL DOCUMENTATION: JOB ID: [id number] 2010 [employer] All Rights Reserved Reading location - IP/workstation name: [email or web address]
[2019-08-02 11:58] LABS: ABSOLUTE EOSINOPHILS # (AUTO) 0.3 10^3/uL (0.0-0.6); ABSOLUTE LYMPHOCYTES (AUTO) 1.8 10^3/uL (0.5-4.7); ABSOLUTE NEUT (AUTO) 6.4 10^3/uL (1.7-8.2); BASOPHILS % (AUTO) 0.5 % (0-2); EOSINOPHILS % (AUTO) 3.7 % (0-6); HEMOGLOBIN 14.8 g/dL (12.0-15.5); LYMPHOCYTES % (AUTO) 20.4 % (13-45); MEAN CORPUSCULAR VOLUME 83 fl (80-97); MONOCYTES % (AUTO) 4.4 % (3-13); PLATELET COUNT 243 10^3/uL (150-450); RED BLOOD COUNT 5.27 10^6/uL (3.72-5.28); RED CELL DISTRIBUTION WIDTH 14.7 % (11.5-14.0)
--- NOTE | 2019-08-02 12:01 | RADIOLOGY REPORT (SQ) ---
EXAM DESCRIPTION: CHEST SINGLE VIEW COMPLETED DATE/TIME: 08/02/2019 11:51 am REASON FOR STUDY: facial numbness left COMPARISON: 12/11/2018 EXAM PARAMETERS: NUMBER OF VIEWS: One view. TECHNIQUE: Single frontal radiographic view of the chest acquired. RADIATION DOSE: NA LIMITATIONS: None. FINDINGS: LUNGS AND PLEURA: No opacities, masses or pneumothorax. No pleural effusion. MEDIASTINUM AND HILAR STRUCTURES: No masses. Contour normal. HEART AND VASCULAR STRUCTURES: Heart normal in size. Normal vasculature. BONES: No acute findings. HARDWARE: None in the chest. OTHER: No other significant finding. IMPRESSION: NO ACUTE RADIOGRAPHIC FINDING IN THE CHEST. TECHNICAL DOCUMENTATION: JOB ID: [id number] 2010 [employer]- All Rights Reserved Reading location - IP/workstation name: [email or web address]
[2019-08-02 12:09] LABS: ALBUMIN 4.6 g/dL (3.5-5.0); ALKALINE PHOSPHATASE 109 U/L (38-126); ANION GAP 9 (5-19); ASPARTATE AMINO TRANSFERASE 15 U/L (14-36); BILIRUBIN,DIRECT 0.1 mg/dL (0.0-0.4); BILIRUBIN,TOTAL 0.4 mg/dL (0.2-1.3); BLOOD UREA NITROGEN 10 mg/dL (7-20); CARBON DIOXIDE 26 mmol/L (22-30); CHLORIDE 105 mmol/L (98-107); CREATINE KINASE 36 U/L (30-135); GLUCOSE 148 mg/dL (75-110); POTASSIUM 4.9 mmol/L (3.6-5.0)
[2019-08-02 12:21] LABS: CREATINE KINASE MB 0.32 ng/mL (<4.55)
[2019-08-02 12:22] LABS: TROPONIN I < 0.012 ng/mL
--- NOTE | 2019-08-02 14:28 | ER Document Report ---
ED Neuro Symptoms/Deficit - General Chief Complaint: S/S of Possible Stroke Stated Complaint: FACIAL NUMBNESS Time Seen by Provider: 08/02/19 10:52 Primary Care Provider: HOLLY MENDES PA-C [PHYSICIAN AVIATION TACTICAL READINESS OFFICER] - Follow up as needed Mode of Arrival: Ambulatory Information source: Patient Notes: 54-year-old woman presents to the emergency department with a history of left facial numbness onset approximately 9 AM 08/02/2019. She states that numbness has been improving, she came to the hospital because she was worried about a stroke. Her notes that her speech was slow, not slurred and that her words were understandable. Patient denies visual changes or peripheral motor changes in the upper or lower extremity. She denies balance problems or dizziness. She is diabetic, BMI of 57.8, denies a family history of stroke. She has taken an 81 mg aspirin prior to coming to the emergency department. TRAVEL OUTSIDE OF THE [place] IN LAST 30 DAYS: No - Related Data Allergies/Adverse Reactions: No Known Allergies Allergy (Verified 08/02/19 10:52) Past Medical History - Social History Smoking Status: Current Every Day Smoker Chew tobacco use (# tins/day): No Frequency of alcohol use: None Drug Abuse: None Family History: None Patient has suicidal ideation: No Patient has homicidal ideation: No - Past Medical History Cardiac Medical History: Reports: Hx Hypercholesterolemia Denies: Hx Coronary Artery Disease, Hx Heart Attack, Hx Hypertension Pulmonary Medical History: Denies: Hx Asthma, Hx Bronchitis, Hx COPD, Hx Pneumonia Neurological Medical History: Denies: Hx Cerebrovascular Accident, Hx Seizures Endocrine Medical History: Reports: Hx Diabetes Mellitus Type 2 Renal/ Medical History: Denies: Hx Peritoneal Dialysis Musculoskeletal Medical History: Denies Hx Arthritis Psychiatric Medical History: Reports: Hx Anxiety, Hx Bipolar Disorder Past Surgical History: Reports: Hx Tubal Ligation, Hx Urinary Tract Surgery - bladder - Immunizations Hx Diphtheria, Pertussis, Tetanus Vaccination: Yes Review of Systems - Review of Systems Notes: Constitutional: Negative for fever. HENT: Negative for sore throat. Eyes: Negative for visual changes. Cardiovascular: Negative for chest pain. Respiratory: Negative for shortness of breath. Gastrointestinal: Negative for abdominal pain, vomiting or diarrhea. Genitourinary: Negative for dysuria. Musculoskeletal: Negative for back pain. Skin: Negative for rash. Neurological: + Facial numbness, + speech speech changes, negative for headaches, no weakness 10 point ROS negative except as marked above and in HPI. Physical Exam - Vital signs Vitals: Temp Pulse Resp BP Pulse Ox 97.7 F 66 16 129/91 H 98 08/02/19 10:52 08/02/19 10:52 08/02/19 10:52 08/02/19 10:52 08/02/19 10:52 - Notes Notes: PHYSICAL EXAMINATION: Physical Exam: General: Morbidly obese female in no acute distress complaining of some tingling in the left face. HEENT: NC/AT, pupils equal round and reactive to light, MM moist,nares clear, oropharynx clear, airway patent, normal facial symmetry Neck: supple, no adenopathy, no masses. Good range of motion Lungs: clear, no wheezing, no rales no rhonchi CVS: Regular rate and rhythm no murmur gallop or rub Abdomen: Soft, active, nontender, no masses, no hepatosplenomegaly Ext: No edema, clubbing or cyanosis. Neuro: Alert and responsive, moving all 4 extremities on command, cranial nerves intact, no focal findings Skin: Intact no open lesions, no rash PSYCH: Normal mood, normal affect. Course - Re-evaluation Re-evalutation: 08/02/19 14:32 54-year-old female presents with left facial numbness, changes in speech which began at approximately 9 AM today, symptoms have improved CT of the head was negative, laboratory data also normal. Patient has some risk factors for CVA which includes diabetes mellitus, obesity. I have discussed with the patient the need to come in to assess her stroke risk for Dopplers, echo, and MRI. 08/02/19 14:35 Patient NIH score 1, mild facial numbness, no motor function abnormality no speech changes no orientation changes and no focal cerebellar findings. The patient is not a candidate for TPA her symptoms began at 9 AM this morning and are improving. An NIH score of 1 with improvement is an exclusion criteria for TPA. 08/02/19 14:39 I have spoken to the hospitalist, Dr. Blackwell, patient will be admitted to the [facility] and work-up for stroke will be performed. Patient is given aspirin 325 mg dose. I discussed plan for admission with the patient and her and they are in agreement. - Vital Signs Vital signs: Temp Pulse Resp BP Pulse Ox 97.7 F 67 16 118/62 95 08/02/19 10:52 08/02/19 12:00 08/02/19 12:39 08/02/19 12:39 08/02/19 12:39 - Laboratory Result Diagrams: 08/02/19 11:25 08/02/19 11:25 Laboratory results interpreted by me: 08/02/19 08/02/19 11:25 11:25 RDW 14.7 H Glucose 148 H 08/02/19 14:37 I have reviewed laboratory data and used this information for the treatment decisions regarding the patient. - Diagnostic Test Radiology reviewed: Image reviewed, Reports reviewed - CT head noncontrast: No a cute intracranial hemorrhage, no acute stroke seen. - EKG Interpretation by Me EKG shows normal: Sinus rhythm - Rate of 59, no acute ST or T wave abnormalities, abnormal EKG with probable left atrial abnormality. Discharge - Discharge Clinical Impression: Left facial numbness, Episode of change in speech Condition: Good Disposition: ADMITTED INPATIENT Admitting Provider: Rishi (Hospitalist) Unit Admitted: IMCU Referrals: HOLLY MENDES PA-C [PHYSICIAN AVIATION TACTICAL READINESS OFFICER] - Follow up as needed
--- NOTE | 2019-08-02 14:39 | EKG REPORT ---
SEVERITY:- BORDERLINE ECG - SINUS RHYTHM PROBABLE LEFT ATRIAL ABNORMALITY : Confirmed by: Amaury Mcdonald MD 02-Aug-2019 14:39:07
[2019-08-02] MEDS ORDERED: ASPIRIN 325 MG TABLET PO ONE (14:43)
[2019-08-02] MEDS ORDERED: LABETALOL HCL INJ 20 MG/4 ML DISP.SYRIN IV PRN (15:09)
[2019-08-02] MEDS ORDERED: IPRATROPIUM/ALBUTEROL 0.5-2.5 MG/3 ML AMPUL NEB PRN (15:09)
[2019-08-02] MEDS ORDERED: ONDANSETRON 4 MG TAB.RAPDIS PO PRN (15:17)
[2019-08-02] MEDS ORDERED: ACETAMINOPHEN 325 MG TABLET PO PRN (15:17)
[2019-08-02] MEDS ORDERED: MAGNESIUM HYDROXIDE SUSP 30 ML UDCUP PO PRN (15:17)
[2019-08-02] MEDS ORDERED: ALBUTEROL SULFATE 0.083% NEB 2.5 MG/3 ML AMPUL NEB PRN (15:17)
[2019-08-02] MEDS ORDERED: OXYCODONE-ACETAMINOPHEN 5-325 MG TABLET PO PRN (15:17)
--- NOTE | 2019-08-02 16:24 | PDOC H&P ---
History of Present Illness Admission Date/PCP: 08/02/19 14:48 Patient complains of: Change in speech, numbness and tingling of left fingers and toes since 9 AM this morning History of Present Illness: ORLANDO WHIPPLE is a 54 year old female With complaints of numbness tingling of left-sided toes as well as fingers, possible slurred speech, weakness of the left upper extremity which all started at about 9 AM this morning. She came to the ER a few hours outside the TPA window. Symptoms have improved although she still complains of numbness and tingling of the toes as well as weakness of left upper extremity. She is not sure if speech is still slurred. There is no chest pain nausea vomiting. Patient has history of leg weakness at baseline. She says her cartilages have given out and she normally ambulates with a cane. She also gives a history of d iabetes but otherwise denies any coronary artery disease or any prior history of cerebral vascular disease. She denies nausea vomiting chest pain dizziness or any other pertinent symptoms Past Medical History Cardiac Medical History: Reports: Hyperlipidema Denies: Coronary Artery Disease, Myocardial Infarction, Hypertension Pulmonary Medical History: Denies: Asthma, Bronchitis, Chronic Obstructive Pulmonary Disease (COPD), Pneumonia Neurological Medical History: Denies: Seizures Endocrine Medical History: Reports: Diabetes Mellitus Type 2 Musculoskeltal Medical History: Denies: Arthritis Psychiatric Medical History: Reports: Bipolar Disorder Hematology: Denies: Anemia Past Surgical History Past Surgical History: Reports: Tubal Ligation Social History Smoking Status: Current Every Day Smoker Electronic Cigarette use?: No Hx Recreational Drug Use: No - Advance Directive Resuscitation Status: Full Code Family History Family History: None Parental Family History Reviewed: No Children Family History Reviewed: Yes Sibling(s) Family History Reviewed.: Yes Medication/Allergy Home Medications: Aripiprazole [Abilify 5 mg Tablet] 5 mg PO DAILY 12/17/18 Buspirone HCl [Buspar 30 mg Tablet] 30 mg PO BID 12/17/18 Duloxetine HCl 40 mg PO BID 12/17/18 Trazodone HCl [Desyrel] 300 mg PO QHS 12/17/18 Metformin HCl [Metformin ER Osmotic] 500 mg PO DAILY 01/03/19 Allergies/Adverse Reactions: No Known Allergies Allergy (Verified 08/02/19 10:52) Review of Systems All systems: reviewed and no additional remarkable complaints except as stated Eyes: PRESENT: visual disturbances Cardiovascular: ABSENT: chest pain, dyspnea on exertion, orthropnea, palpitations Respiratory: ABSENT: cough, dyspnea, hemoptysis Gastrointestinal: ABSENT: hematemesis, hematochezia Genitourinary: ABSENT: as per HPI Neurological: PRESENT: abnormal speech, focal weakness, numbness, weakness. ABSENT: dizziness, syncope Physical Exam Vital Signs: Temp Pulse Resp BP Pulse Ox 97.8 F 55 L 20 116/74 95 08/02/19 16:02 08/02/19 15:00 08/02/19 16:02 08/02/19 16:02 08/02/19 16:02 Intake & Output 08/01/19 08/02/19 08/03/19 06:59 06:59 07:59 Weight 157.5 kg General appearance: PRESENT: no acute distress, morbidly obese, well-developed, well-nourished Head exam: PRESENT: atraumatic, normocephalic Eye exam: PRESENT: conjunctiva pink, EOMI, PERRLA. ABSENT: scleral icterus Mouth exam: PRESENT: tongue midline Neck exam: ABSENT: carotid bruit, JVD, lymphadenopathy, thyromegaly Respiratory exam: PRESENT: clear to auscultation roque. ABSENT: rales, rhonchi, wheezes Cardiovascular exam: PRESENT: RRR, +S1, +S2. ABSENT: diastolic murmur, rubs, systolic murmur Pulses: PRESENT: normal dorsalis pedis pul Vascular exam: PRESENT: normal capillary refill GI/Abdominal exam: PRESENT: normal bowel sounds, soft. ABSENT: distended, guarding, mass, organolmegaly, rebound, tenderness Rectal exam: PRESENT: deferred Extremities exam: PRESENT: full ROM. ABSENT: calf tenderness, clubbing, pedal edema Neurological exam: PRESENT: alert, awake, oriented to person, oriented to place, oriented to time, oriented to situation, motor sensory deficit - strength 2/5 lue Psychiatric exam: PRESENT: appropriate affect, normal mood. ABSENT: homicidal ideation, suicidal ideation Skin exam: PRESENT: dry, intact, warm. ABSENT: cyanosis, rash Results Laboratory Results: 08/02/19 11:25 08/02/19 11:25 08/02/19 08/02/19 11:25 11:25 WBC 9.0 RBC 5.27 Hgb 14.8 Hct 44.0 MCV 83 MCH 28.0 MCHC 33.5 RDW 14.7 H Plt Count 243 Seg Neutrophils % 71.0 Sodium 139.6 Potassium 4.9 Chloride 105 Carbon Dioxide 26 Anion Gap 9 BUN 10 Creatinine 0.93 Est GFR ( Amer) > 60 Glucose 148 H Calcium 10.0 Total Bilirubin 0.4 AST 15 Alkaline Phosphatase 109 Total Protein 8.0 Albumin 4.6 08/02/19 08/02/19 11:25 11:25 Creatine Kinase 36 CK-MB (CK-2) 0.32 Troponin I < 0.012 Impressions: Chest X-Ray 08/02/19 10:52 IMPRESSION: NO ACUTE RADIOGRAPHIC FINDING IN THE CHEST. Head CT 08/02/19 10:52 IMPRESSION: NORMAL BRAIN CT WITHOUT CONTRAST. EVIDENCE OF ACUTE STROKE: NO. Assessment and Plan - Diagnosis (1) TIA (transient ischemic attack) Is this a current diagnosis for this admission?: Yes Plan: CT scan of the brain is negative. MRI has been ordered. Two-dimensional echocardiogram as well as carotid Doppler studies will also be ordered. Patient will be placed on statin pending lipid profile. We will also continue with aspirin as ordered (3) Type 2 diabetes mellitus Qualifiers: Diabetes mellitus halfway insulin use: without halfway use Is this a current diagnosis for this admission?: Yes Plan: Will place on sliding scale insulin (4) Left facial numbness Is this a current diagnosis for this admission?: Yes Plan: Associated with tingling of the left lower extremity - Time Time Spent with patient: 25-34 minutes Smoking Cessation Education: 3 to 10 minutes Medications reviewed and adjusted accordingly: Yes Anticipated discharge: Home Within: within 48 hours - Inpatient Certification Based on my medical assessment, after consideration of the patient's comorbidities, presenting symptoms, or acuity I expect that the services needed warrant INPATIENT care.: Yes Medical Necessity: Need Close Monitoring Due to Risk of Patient Decompensation
[2019-08-02] MEDS ORDERED: GLUCAGON,HUMAN RECOMB 1 MG INJ IM PRN (16:27)
[2019-08-02] MEDS ORDERED: DEXTROSE 50%-WATER 25 GM/50 ML DISP.SYRIN IV PRN ×2 (16:27)
[2019-08-02] MEDS ORDERED: DEXTROSE 40% GEL 15 GM TUBE PO PRN ×2 (16:27)
[2019-08-02] MEDS: BUSPIRONE HCL 10 MG TABLET PO SCH (18:27)
--- NOTE | 2019-08-02 19:12 | RADIOLOGY REPORT (SQ) ---
EXAM DESCRIPTION: MRI HEAD WITHOUT COMPLETED DATE/TIME: 08/02/2019 7:00 pm REASON FOR STUDY: TIA COMPARISON: None. TECHNIQUE: Multiplanar imaging includes non-contrasted T1, T2, FLAIR, and Diffusion with ADC map seq uences. Images stored on PACS. LIMITATIONS: None. FINDINGS: ANATOMY: No anomalies. Normal vascular flow voids. Pituitary fossa normal. CSF SPACES: Normal in size and contour. No hemorrhage. CEREBRUM: Scattered high-signal intensity lesions scattered throughout the white matter on FLAIR imag ing with distribution suggesting chronic micro-vascular ischemic change. Sulci and gyri normal in si ze and contour. No evidence of hemorrhage, mass or extraaxial fluid collection. POSTERIOR FOSSA: No signal alteration. No hemorrhage. No edema, masses or mass effect. Internal aniyah tory canals, cerebello-pontine angles, mastoids normal. DIFFUSION: Negative for acute or sub-acute infarction. ORBITS: No masses. Globes normal. PARANASAL SINUSES: No fluid levels. Mucosa normal. OTHER: Small amount of left mastoid fluid. IMPRESSION: Negative for acute or sub-acute infarction.Scattered high-signal intensity lesions scatt ered throughout the white matter on FLAIR imaging with distribution suggesting chronic micro-vascular ischemic change. EVIDENCE OF ACUTE STROKE: NO. TECHNICAL DOCUMENTATION: JOB ID: [id number] [place]-72 2010 [employer]- All Rights Reserved Reading location - IP/workstation name: [email or web address]
[2019-08-02] MEDS: ATORVASTATIN CALCIUM 20 MG TABLET PO SCH (21:22)
[2019-08-02] MEDS: TRAZODONE HCL 50 MG TABLET PO SCH (21:22)
[2019-08-03] MEDS: PANTOPRAZOLE SODIUM 20 MG TABLET.DR PO SCH (05:57)
[2019-08-03 08:24] LABS: CHOLESTEROL 115.46 mg/dL (0-200); TRIGLYCERIDES 145 mg/dL (<150)
[2019-08-03] MEDS: INSULIN REG, HUMAN 100 UNIT/ML 3 ML VIAL (PYX) SUBCUT SCH ×2 (08:32→17:32)
[2019-08-03 08:35] LABS: DIRECT LDL 62 mg/dL (<100)
[2019-08-03] MEDS: ENOXAPARIN SODIUM INJ 40 MG/0.4 ML DISP.SYRIN SUBCUT SCH (09:39)
[2019-08-03] MEDS: BUSPIRONE HCL 10 MG TABLET PO SCH ×2 (09:41→17:38)
[2019-08-03] MEDS: ARIPIPRAZOLE 5 MG TABLET PO SCH (09:41)
[2019-08-03] MEDS: METFORMIN HCL 500 MG TABLET PO SCH (09:41)
[2019-08-03] MEDS: ASPIRIN 325 MG TABLET, ENT COATED PO SCH (09:41)
[2019-08-03] MEDS: DOCUSATE SODIUM 100 MG CAPSULE PO SCH (09:41)
--- NOTE | 2019-08-03 16:59 | RADIOLOGY REPORT (SQ) ---
EXAM DESCRIPTION: CAROTID DOPPLER COMPLETED DATE/TIME: 08/03/2019 4:29 pm REASON FOR STUDY: TIA COMPARISON: None. TECHNIQUE: Grayscale ultrasound, Doppler velocity and spectra, and color Doppler images acquired of the extra-cranial carotid and vertebral arteries. Images stored on PACS. LIMITATIONS: None. FINDINGS: RIGHT CAROTID CCA Velocities: Within normal limits. ICA Velocities Peak systolic 90 cm/s. End diastolic 40 cm/s. Proximal ICA/CCA peak systolic ratio 1.0. Spectra normal. No significant plaque. LEFT CAROTID CCA Velocities: Within normal limits. ICA Velocities Peak systolic 86 cm/s. End diastolic 35 cm/s. Proximal ICA/CCA peak systolic ratio 0.9. Spectra normal. No significant plaque. VERTEBRAL ARTERIES: Antegrade flow. Normal waveforms. SUBCLAVIAN ARTERIES: No finding. OTHER: No other significant finding. IMPRESSION: NO HEMODYNAMICALLY SIGNIFICANT STENOSIS. COMMENT: Quality ID #[id number]: Velocity criteria are extrapolated from the diameter data as defined by t har[place] Society of Radiologists in Ultrasound Consensus Conference. Radiology 2003: 229; 340-346. TECHNICAL DOCUMENTATION: JOB ID: [id number] [place]-72 2010 [employer]- All Rights Reserved Reading location - IP/workstation name: [email or web address]
--- NOTE | 2019-08-03 17:28 | PDOC PROGRESS REPORT ---
Subjective Progress Note for:: 08/03/19 Reason For Visit: TIA Physical Exam Vital Signs: Temp Pulse Resp BP Pulse Ox 97.5 F 64 18 123/67 98 08/03/19 11:28 08/03/19 11:28 08/03/19 11:28 08/03/19 11:28 08/03/19 11:28 Intake & Output 08/02/19 08/03/19 08/04/19 05:59 06:59 06:59 Intake Total 450 Output Total 500 Balance -50 Weight General appearance: PRESENT: no acute distress, well-developed, well-nourished Head exam: PRESENT: atraumatic, normocephalic Eye exam: PRESENT: conjunctiva pink, EOMI, PERRLA. ABSENT: scleral icterus Ear exam: PRESENT: normal external ear exam Mouth exam: PRESENT: moist, tongue midline Neck exam: ABSENT: carotid bruit, JVD, lymphadenopathy, thyromegaly Respiratory exam: PRESENT: clear to auscultation roque. ABSENT: rales, rhonchi, wheezes Cardiovascular exam: PRESENT: RRR. ABSENT: diastolic murmur, rubs, systolic murmur Pulses: PRESENT: normal dorsalis pedis pul Vascular exam: PRESENT: normal capillary refill GI/Abdominal exam: PRESENT: normal bowel sounds, soft. ABSENT: distended, guar ding, mass, organolmegaly, rebound, tenderness Rectal exam: PRESENT: deferred Extremities exam: PRESENT: full ROM. ABSENT: calf tenderness, clubbing, pedal edema Neurological exam: PRESENT: alert, awake, oriented to person, oriented to place, oriented to time, oriented to situation, CN II-XII grossly intact. ABSENT: motor sensory deficit Psychiatric exam: PRESENT: appropriate affect, normal mood. ABSENT: homicidal ideation, suicidal ideation Skin exam: PRESENT: dry, intact, warm. ABSENT: cyanosis, rash Results Laboratory Results: 08/02/19 11:25 08/02/19 11:25 08/03/19 07:57 Triglycerides 145 Cholesterol 115.46 LDL Cholesterol Direct 62 VLDL Cholesterol 29.0 HDL Cholesterol 37 L 08/02/19 08/02/19 08/02/19 11:25 11:25 20:07 Creatine Kinase 36 CK-MB (CK-2) 0.32 Troponin I < 0.012 < 0.012 08/03/19 08/03/19 01:59 07:57 Creatine Kinase CK-MB (CK-2) Troponin I < 0.012 < 0.012 Impressions: Head MRI 08/02/19 00:00 IMPRESSION: Negative for acute or sub-acute infarction.Scattered high-signal intensity lesions scattered throughout the white matter on FLAIR imaging with distribution suggesting chronic micro-vascular ischemic change. EVIDENCE OF ACUTE STROKE: NO. Chest X-Ray 08/02/19 10:52 IMPRESSION: NO ACUTE RADIOGRAPHIC FINDING IN THE CHEST. Head CT 08/02/19 10:52 IMPRESSION: NORMAL BRAIN CT WITHOUT CONTRAST. EVIDENCE OF ACUTE STROKE: NO. Carotid Doppler Study 08/03/19 00:00 IMPRESSION: NO HEMODYNAMICALLY SIGNIFICANT STENOSIS. Assessment and Plan - Diagnosis (1) TIA (transient ischemic attack) Is this a current diagnosis for this admission?: Yes (3) Type 2 diabetes mellitus Qualifiers: Diabetes mellitus tank terminal gauger insulin use: without correction use Is this a current diagnosis for this admission?: Yes (4) Left facial numbness Is this a current diagnosis for this admission?: Yes - Plan Summary Summary: Awaiting echocardiogram as well as carotid Doppler studies to be done. Patient reports feeling better with resolution of numbness and tingling of fingers and toes and there is been no further new deficits identified
--- NOTE | 2019-08-03 18:36 | XCELERA REPORT ---
[address] [address] Transthoracic Echocardiogram Report Name: ORLANDO WHIPPLE Age: 54 yrs Gender: Female : 1965 Patient Status: Inpatient Patient Location: [address] [place], [place] [address] Study Date: 08/03/2019 02:50 PM History: [place] Height: 65 in Weight: 347 lb BSA: 2.5 m2 Procedure: A complete two-dimensional transthoracic echocardiogram was performed (2D, M-mode, spectral and color flow Doppler). The study was technically difficult with many images being suboptimal in quality. Reason For Study: TIA Previous Evaluation: No previous studies were available. History: TIA. Ordering Physician: ALEA RM Performed By: Oliverio Montelongo Interpretation Summary No cardiac source of embolus. No contrast study perfromed to exclude intra cardiac shunt. Consider STEPHANY if cliniclly indicated. Left ventricular systolic function is normal. The Ejection Fraction estimate is 55-60% The right ventricle is normal in size and function. There is a trace to mild amount of mitral regurgitation There is no aortic valve stenosis There is a trace amount of tricuspid regurgitation There is no pericardial effusion. No cardiac source of embolus. No contrast study perfromed to exclude intra cardiac shunt. Consider STEPHANY if cliniclly indicated. MMode/2D Measurements & Calculations RVDd: 3.5 cm LVIDd: 6.2 cm FS: 34.4 % Ao root diam: 2.9 cm IVSd: 1.0 cm LVIDs: 4.0 cm EDV(Teich): 191.4 ml Ao root area: 6.7 cm2 LVPWd: 0.98 cm ESV(Teich): 71.7 ml LA dimension: 3.9 cm EF(Teich): 62.5 % Doppler Measurements & Calculations MV E max dale: MV P1/2t max dale: Ao V2 max: LV V1 max P.0 cm/sec 123.5 cm/sec 157.5 cm/sec 9.2 mmHg MV A max dale: MV P1/2t: 95.3 msec Ao max P.9 mmHgLV V1 max: 109.1 cm/sec MVA(P1/2t): 2.3 cm2 152.0 cm/sec MV E/A: 1.1 MV dec slope: LV dP/dt: 2272 mmHg/s 379.9 cm/sec2 MV dec time: 0.26 sec PA V2 max: TR max dale: MV P1/2t-pr_phl: 107.6 cm/sec 255.0 cm/sec 95.3 msec PA max P.6 mmHgTR max P.0 mmHg Left Ventricle The left ventricle is mildly to moderately dilated. There is mild concentric left ventricular hypertrophy. Left ventricular systolic function is normal. The Ejection Fraction estimate is 55-60%. Doppler measurements suggest pseudonormalized left ventricular relaxation, which is associated with grade II/IV or mild to moderate diastolic dysfunction. Regional wall motion abnormalities cannot be excluded due to limited visualization. There is no thrombus. Right Ventricle The right ventricle is normal in size and function. Atria The right atrium is normal. The left atrium is mildly dilated. The thickening of interatrial septum suggests lipomatous hypertrophy. Mitral Valve The mitral valve is grossly normal. There is a trace to mild amount of mitral regurgitation. Aortic Valve The aortic valve opens well. The aortic valve is not well visualized secondary to technical limitations. There is no aortic valve stenosis. No aortic regurgitation is present. Tricuspid Valve The tricuspid valve is normal in structure and function. There is a trace amount of tricuspid regurgitation. Doppler findings do not suggest pulmonary hypertension. Pulmonic Valve The pulmonic valve is not well seen, but is grossly normal. There is a mild amount of pulmonic regurgitation. Great Vessels The aortic root is normal size. The inferior vena cava appeared normal and decreased > 50% with respiration (RAP 5-10 mmHg). Effusions There is no pericardial effusion. : ALEA RM Anil
[2019-08-03] MEDS: TRAZODONE HCL 50 MG TABLET PO SCH (22:23)
[2019-08-03] MEDS: ATORVASTATIN CALCIUM 20 MG TABLET PO SCH (22:23)
[2019-08-04] MEDS: PANTOPRAZOLE SODIUM 20 MG TABLET.DR PO SCH (05:56)
[2019-08-04] MEDS: INSULIN REG, HUMAN 100 UNIT/ML 3 ML VIAL (PYX) SUBCUT SCH (09:05)
[2019-08-04] MEDS: ENOXAPARIN SODIUM INJ 40 MG/0.4 ML DISP.SYRIN SUBCUT SCH (09:11)
[2019-08-04] MEDS: ARIPIPRAZOLE 5 MG TABLET PO SCH (09:51)
[2019-08-04] MEDS: BUSPIRONE HCL 10 MG TABLET PO SCH (09:51)
[2019-08-04] MEDS: ASPIRIN 325 MG TABLET, ENT COATED PO SCH (09:51)
[2019-08-04] MEDS: METFORMIN HCL 500 MG TABLET PO SCH (09:51)
[2019-08-04 11:17] VITALS: BP 108/68
--- NOTE | 2019-08-04 11:20 | PDOC DISCHARGE SUMMARY ---
Impression - Admit/DC Date/PCP Admission Date/Primary Care Provider: 08/02/19 14:48 Discharge Date: 08/04/19 - Discharge Diagnosis (1) TIA (transient ischemic attack) Is this a current diagnosis for this admission?: Yes (2) Type 2 diabetes mellitus Is this a current diagnosis for this admission?: Yes (3) Left facial numbness Is this a current diagnosis for this admission?: Yes (4) Morbid obesity Is this a current diagnosis for this admission?: Yes - Additional Information Resuscitation Status: Full Code Discharge Diet: Diabetic Discharge Activity: Activity As Tolerated Referrals: HOLLY MENDES PA-C [PHYSICIAN TECHNICAL TRANSLATOR] - 08/12/19 10:45 am JOVANNY SAUNDERS MD [ACTIVE STAFF] - (TIA Please evaluate for Event monitor) Home Medications: Aripiprazole [Abilify 5 mg Tablet] 5 mg PO DAILY 12/17/18 Buspirone HCl [Buspar 30 mg Tablet] 30 mg PO BID 12/17/18 Trazodone HCl [Desyrel] 300 mg PO QHS 12/17/18 Metformin HCl [Metformin ER Osmotic] 500 mg PO DAILY 01/03/19 Atorvastatin Calcium [Lipitor 40 mg Tablet] 40 mg PO DAILY 08/02/19 Aspirin [Ecotrin 325 mg EC Tablet] 325 mg PO DAILY tabec 08/04/19 History of Present Illiness History of Present Illness: ORLANDO WHIPPLE is a 54 year old female With complaints of numbness tingling of left-sided toes as well as fingers, p ossible slurred speech, weakness of the left upper extremity which all started at about 9 AM this morning. She came to the ER a few hours outside the TPA window. Symptoms have improved although she still complains of numbness and tingling of the toes as well as weakness of left upper extremity. She is not sure if speech is still slurred. There is no chest pain nausea vomiting. Patient has history of leg weakness at baseline. She says her cartilages have given out and she normally ambulates with a cane. She also gives a history of diabetes but otherwise denies any coronary artery disease or any prior history of cerebral vascular disease. She denies nausea vomiting chest pain dizziness or any other pertinent symptoms Hospital Course Hospital Course: Patient was admitted to the telemetry floor. She was monitored. She had no further decline in her deficits. She did have numbness and tingling on initial presentation however this resolved while she was in hospital. CT scan, MRI of the brain, carotid Doppler and echocardiogram done revealed no acute findings. Patient's aspirin was increased from 81 mg to 325 mg but I will suggest outpa tient follow-up and reevaluation. She was continued on her home Lipitor dose. Her blood pressure was relatively well controlled while in hospital. With hemodynamic stability and no further intervention has been planned as she has been discharged home for outpatient follow-up. Patient was advised on the need to lose weight. Physical Exam Vital Signs: Temp Pulse Resp BP Pulse Ox 98.2 F 67 14 104/56 L 97 08/04/19 07:18 08/04/19 08:00 08/04/19 08:00 08/04/19 07:18 08/04/19 08:00 Intake & Output 08/03/19 08/04/19 08/05/19 06:59 06:59 06:59 Intake Total 1575 Output Total 2700 Balance -1125 Weight 135.2 kg General appearance: PRESENT: no acute distress, morbidly obese, well-developed Head exam: PRESENT: atraumatic Eye exam: PRESENT: conjunctiva pink, EOMI, PERRLA. ABSENT: scleral icterus Ear exam: PRESENT: normal external ear exam Mouth exam: PRESENT: moist, tongue midline Neck exam: ABSENT: carotid bruit, JVD, lymphadenopathy, thyromegaly Respiratory exam: PRESENT: clear to auscultation roque. ABSENT: rales, rhonchi, wheezes Cardiovascular exam: PRESENT: RRR. ABSENT: diastolic murmur, rubs, systolic murmur Pulses: PRESENT: normal dorsalis pedis pul Vascular exam: PRESENT: normal capillary refill GI/Abdominal exam: PRESENT: normal bowel sounds, soft. ABSENT: distended, guarding, mass, organolmegaly, rebound, tenderness Rectal exam: PRESENT: deferred Extremities exam: PRESENT: full ROM. ABSENT: calf tenderness, clubbing, pedal edema Neurological exam: PRESENT: alert, awake, oriented to person, oriented to place, oriented to time, oriented to situation, CN II-XII grossly intact Psychiatric exam: PRESENT: appropriate affect, normal mood. ABSENT: homicidal ideation, suicidal ideation Skin exam: PRESENT: dry, intact, warm. ABSENT: cyanosis, rash Results Laboratory Results: WBC 9.0 10^3/uL (4.0-10.5) 08/02/19 11:25 RBC 5.27 10^6/uL (3.72-5.28) 08/02/19 11:25 Hgb 14.8 g/dL (12.0-15.5) 08/02/19 11:25 Hct 44.0 % (36.0-47.0) 08/02/19 11:25 MCV 83 fl (80-97) 08/02/19 11:25 MCH 28.0 pg (27.0-33.4) 08/02/19 11:25 MCHC 33.5 g/dL (32.0-36.0) 08/02/19 11:25 RDW 14.7 % (11.5-14.0) H 08/02/19 11:25 Plt Count 243 10^3/uL (150-450) 08/02/19 11:25 Lymph % (Auto) 20.4 % (13-45) 08/02/19 11:25 Terrell % (Auto) 4.4 % (3-13) 08/02/19 11:25 Eos % (Auto) 3.7 % (0-6) 08/02/19 11:25 Baso % (Auto) 0.5 % (0-2) 08/02/19 11:25 Absolute Neuts (auto) 6.4 10^3/uL (1.7-8.2) 08/02/19 11:25 Absolute Lymphs (auto) 1.8 10^3/uL (0.5-4.7) 08/02/19 11:25 Absolute Monos (auto) 0.4 10^3/uL (0.1-1.4) 08/02/19 11:25 Absolute Eos (auto) 0.3 10^3/uL (0.0-0.6) 08/02/19 11:25 Absolute Basos (auto) 0.0 10^3/uL (0.0-0.2) 08/02/19 11:25 Seg Neutrophils % 71.0 % (42-78) 08/02/19 11:25 PT 12.7 SEC (11.4-15.4) 08/02/19 11:25 INR 0.95 08/02/19 11:25 APTT 31.5 SEC (23.5-35.8) 08/02/19 11:25 Sodium 139.6 mmol/L (137-145) 08/02/19 11:25 Potassium 4.9 mmol/L (3.6-5.0) 08/02/19 11:25 Chloride 105 mmol/L (98-107) 08/02/19 11:25 Carbon Dioxide 26 mmol/L (22-30) 08/02/19 11:25 Anion Gap 9 (5-19) 08/02/19 11:25 BUN 10 mg/dL (7-20) 08/02/19 11:25 Creatinine 0.93 mg/dL (0.52-1.25) 08/02/19 11:25 Est GFR ( Amer) > 60 (>60) 08/02/19 11:25 Est GFR (MDRD) Non-Af > 60 (>60) 08/02/19 11:25 Glucose 148 mg/dL (75-110) H 08/02/19 11:25 POC Glucose 114 mg/dL (70-110) H 08/04/19 07:15 Calcium 10.0 mg/dL (8.4-10.2) 08/02/19 11:25 Total Bilirubin 0.4 mg/dL (0.2-1.3) 08/02/19 11:25 Direct Bilirubin 0.1 mg/dL (0.0-0.4) 08/02/19 11:25 Neonat Total Bilirubin Not Reportable 08/02/19 11:25 Neonat Direct Bilirubin Not Reportable 08/02/19 11:25 Neonat Indirect Bili Not Reportable 08/02/19 11:25 AST 15 U/L (14-36) 08/02/19 11:25 ALT 11 U/L (<35) 08/02/19 11:25 Alkaline Phosphatase 109 U/L (38-126) 08/02/19 11:25 Creatine Kinase 36 U/L (30-135) 08/02/19 11:25 CK-MB (CK-2) 0.32 ng/mL (<4.55) 08/02/19 11:25 Troponin I < 0.012 ng/mL 08/03/19 07:57 Total Protein 8.0 g/dL (6.3-8.2) 08/02/19 11:25 Albumin 4.6 g/dL (3.5-5.0) 08/02/19 11:25 Triglycerides 145 mg/dL (<150) 08/03/19 07:57 Cholesterol 115.46 mg/dL (0-200) 08/03/19 07:57 LDL Cholesterol Direct 62 mg/dL (<100) 08/03/19 07:57 VLDL Cholesterol 29.0 mg/dL (10-31) 08/03/19 07:57 HDL Cholesterol 37 mg/dL (>40) L 08/03/19 07:57 08/02/19 08/02/19 08/03/19 11:25 20:07 01:59 CK-MB (CK-2) 0.32 Troponin I < 0.012 < 0.012 < 0.012 08/03/19 07:57 CK-MB (CK-2) Troponin I < 0.012 Impressions: Head MRI 08/02/19 00:00 IMPRESSION: Negative for acute or sub-acute infarction.Scattered high-signal intensity lesions scattered throughout the white matter on FLAIR imaging with distribution suggesting chronic micro-vascular ischemic change. EVIDENCE OF ACUTE STROKE: NO. Chest X-Ray 08/02/19 10:52 IMPRESSION: NO ACUTE RADIOGRAPHIC FINDING IN THE CHEST. Head CT 08/02/19 10:52 IMPRESSION: NORMAL BRAIN CT WITHOUT CONTRAST. EVIDENCE OF ACUTE STROKE: NO. Carotid Doppler Study 08/03/19 00:00 IMPRESSION: NO HEMODYNAMICALLY SIGNIFICANT STENOSIS. Plan Health Concerns: Follow-up for event monitor as outpatient Stroke Is this a Stroke Patient?: Yes Stroke Pt being discharged on Anti-thrombolytic therapy?: Yes Stroke Pt being discharged on Anti-coagulation therapy?: No Reason(s) for not prescribing Anti-coagulation therapy:: Medical Contraindication Stroke Pt being discharged on Statins?: Yes Acute Heart Failure - Is this a Heart Failure Patient?: No
[2019-08-04] MEDS: DOCUSATE SODIUM 100 MG CAPSULE PO SCH (11:22)
== END 2019-08-04 11:48 | disposition home or self-care (01) | DRG 69 ==
LOC: ER 10:46 → EH 14:48 → 3W 16:40
PROVIDERS: ADMIT Internal Medicine; ATTEND Internal Medicine
DX: G45.9 Transient cerebral ischemic attack, unspecified (principal); Z68.43 Body mass index [BMI] 50.0-59.9, adult; E11.9 Type 2 diabetes mellitus without complications; E66.01 Morbid (severe) obesity due to excess calories; E78.5 Hyperlipidemia, unspecified; F31.9 Bipolar disorder, unspecified; F17.200 Nicotine dependence, unspecified, uncomplicated; F41.9 Anxiety disorder, unspecified; R47.81 Slurred speech; R53.1 Weakness; R20.0 Anesthesia of skin; R29.701 NIHSS score 1; Z79.84 Long term (current) use of oral hypoglycemic drugs; Z79.82 Long term (current) use of aspirin
CPT/HCPCS: 36415; 70450; 70551; 71045; 80053; 80061; 82550; 82553; 82962; 84484; 85025; 85610; 85730; 93005; 93010; 93306; 93880; 99285; J1650; J3490

== ENCOUNTER → 2020-02-26 | Outpatient (CLI) | payer MEDICAID ==
--- NOTE | 2020-02-26 12:46 | RADIOLOGY REPORT (SQ) ---
EXAM DESCRIPTION: C SP 4 OR 5 VIEWS IMAGES COMPLETED DATE/TIME: 02/26/2020 11:57 am REASON FOR STUDY: CERVICALGIA M54.2 CERVICALGIA COMPARISON: None. NUMBER OF VIEWS: Five views. TECHNIQUE: AP, lateral, obliques and odontoid radiographic images acquired of the cervical spine. LIMITATIONS: None. FINDINGS: MINERALIZATION: Normal. ALIGNMENT: Anatomic. VERTEBRAE: Vertebral bodies of normal height. DISCS: No significant osteophytes or sclerosis. Disc height maintained. FORAMINA: No osteophytes or foraminal narrowing. LATERAL AND POSTERIOR ELEMENTS: Facets, lateral masses and spinous processes without significant find ings. HARDWARE: None in the spine. SOFT TISSUES: No masses or calcifications. Lung apices clear. OTHER: No other significant finding. IMPRESSION: NO SIGNIFICANT RADIOGRAPHIC FINDING IN THE CERVICAL SPINE. TECHNICAL DOCUMENTATION: JOB ID: [id number] [employer]- All Rights Reserved Reading location - IP/workstation name: [email or web address]
== END ==
LOC: OD 11:42
PROVIDERS: ATTEND Physician Assistant
DX: M54.2 Cervicalgia (principal)
CPT/HCPCS: 72050